=== PATIENT | female | born 1985 ===

== ENCOUNTER 2023-03-24 12:05 | Emergency (ER) | payer OTHER ==
[~2023-03-24] VITALS: Ht 152.4 cm; Wt 81.6 kg
[2023-03-24 15:10] LABS: HEMATOCRIT 21.5 % (35.0-50.0)
[2023-03-24 15:14] LABS: BASOPHILS 0.7 % (0-2); EOSINOPHILS 3.1 % (0-6); LYMPHOCYTES 23.1 % (24-44); MCH 15.2 (27-36); MCHC 27.3 g/dl (30-36); MCV 55.9 fl (81-99); MONOCYTES 5.6 % (0-12); NEUTROPHILS 67.5 % (39-80); PLATELET COUNT 464 K/uL (140-440); RBC 3.84 M/ul (4.3-5.7); RDW 20.2 (10.5-15.0)
[2023-03-24 15:17] LABS: HEMOGLOBIN 5.9 g/dL (12.0-18.0)
[2023-03-24 15:30] LABS: ALBUMIN 3.8 g/dL (3.4-5.0); ALBUMIN/GLOBULIN RATIO 0.9 (1.1-2.4); ANION GAP 13.8 (7-21); BILIRUBIN, TOTAL 0.3 ng/dL (0.2-1.0); BUN/CREATININE RATIO 7.57 (6.0-28.6); CALCIUM 8.8 mg/dL (8.5-10.1); CREATININE, SERUM 0.66 mg/dL (0.55-1.02); POTASSIUM 3.8 mmol/L (3.5-5.1)
[2023-03-24 16:07] LABS: ABO O; ANTIBODY SCREEN NEGATIVE; RH POSITIVE
[2023-03-24 16:36] LABS: IS CROSSMATCH COMPATIBLE
[2023-03-24 17:11] LABS: ABO O; RH POSITIVE
[2023-03-24 17:18] VITALS: BP 119/79
[2023-03-26 00:45] LABS: IRON BINDING CAPACITY TOTAL 410 ug/dL (240-450); IRON,SERUM OR PLASMA 9 ug/dL (28-170); TRANSFERRIN SATURATION 2 %sat (20-50)
== END 2023-03-24 17:20 | disposition home or self-care (01) ==
LOC: ED 12:05
PROVIDERS: Emergency Medicine
DX: D50.0 Iron deficiency anemia secondary to blood loss (chronic) (principal)
CPT/HCPCS: 36415; 80053; 83550; 85025; 85060; 86850; 86900; 86901; 86922; 99284; P9016

== ENCOUNTER 2024-12-19 08:11 | Emergency (ER) | payer OTHER ==
[~2024-12-19] VITALS: Ht 152.4 cm; Wt 90.5 kg
[2024-12-19 09:02] LABS: BASOPHILS 0.5 % (0.1-1.2); EOSINOPHILS 1.9 % (0.7-5.8); HEMATOCRIT 39.5 % (34.1-44.9); LYMPHOCYTES 21.6 % (19.3-51.7); MCHC 30.4 g/dL (32.2-35.5); MCV 85.7 fL (79.4-94.8); NEUTROPHILS 67.6 % (34.0-71.1); PLATELET COUNT 251 K/uL (182-369); RBC 4.61 M/uL (3.93-5.22)
[2024-12-19 09:13] LABS: INR 0.96 (0.80-1.30); PROTIME 12.4 Sec (11.2-14.2)
[2024-12-19 09:18] LABS: ALBUMIN 3.6 g/dL (3.4-5.0); ALBUMIN/GLOBULIN RATIO 0.86 (1.1-2.4); ANION GAP 13.4 (7-21); BILIRUBIN, TOTAL 0.2 mg/dL (0.2-1.0); BUN/CREATININE RATIO 17.94 (6.0-28.6); CALCIUM 8.7 mg/dL (8.5-10.1); CREATININE, SERUM 0.78 mg/dL (0.55-1.02); POTASSIUM 4.4 mmol/L (3.5-5.1); PROTEIN, TOTAL 7.8 g/dL (6.4-8.2)
[2024-12-19 09:38] LABS: ABO O; ANTIBODY SCREEN NEGATIVE; RH POSITIVE
[2024-12-19] MEDS ORDERED: TRANEXAMIC ACID 650 MG TABLET PO ONE (10:15)
[2024-12-19] MEDS ORDERED: MICROGESTIN1 EAC1 PO (10:47)
[2024-12-19 10:55] VITALS: BP 119/77
== END 2024-12-19 10:55 | disposition home or self-care (01) ==
LOC: ED 08:11
PROVIDERS: Emergency Medicine
DX: N92.0 Excessive and frequent menstruation with regular cycle (principal)
CPT/HCPCS: 36415; 80053; 84703; 85025; 85610; 86850; 86900; 86901; 99284

== ENCOUNTER 2025-02-25 19:56 | Emergency (ER) | payer OTHER ==
[~2025-02-25] VITALS: Ht 152.4 cm; Wt 89.0 kg
[~2025-02-25 19:56] MED LIST: MICROGESTIN1 EAC1 PO
[2025-02-25] MEDS ORDERED: KETOROLAC TROMETHAMINE 60 MG/2 ML VIAL IM ONE (20:30)
[2025-02-25] MEDS ORDERED: CELEBREX200 MG PO (21:15)
[2025-02-25] MEDS ORDERED: TRAMADOL HCL50 MG PO (21:15)
[2025-02-25] MEDS ORDERED: TRAMADOL HCL 50 MG HOME.PACK PO ONE (21:15)
[2025-02-25 22:01] VITALS: BP 122/74
== END 2025-02-25 22:00 | disposition home or self-care (01) ==
LOC: ED 19:56
DX: S83.412A Sprain of medial collateral ligament of left knee, initial encounter (principal); W19.XXXA Unspecified fall, initial encounter
CPT/HCPCS: 73560; 96372; 99283; A9270; J1885